=== PATIENT | female | born 1970 | race Caucasian/White ===

== ENCOUNTER 2018-06-08 11:41 | Emergency (ER) | payer OTHER ==
[~2018-06-08] VITALS: Ht 162.6 cm; Wt 133.4 kg
[~2018-06-08 11:41] MED LIST: FLUO-387 PO; OMEP40EC1 PO; OXYC30TA2 PO; XERELTO PO; ZOLP10TA1 PO
[2018-06-08 11:48] VITALS: BP 120/63
--- NOTE | 2018-06-08 12:29 | NUR ---
C/O L GREAT TOE PAIN X1 MONTH, CURRENTLY TAKING AUGMENTIN 875MG, DAY 2. GREAT L TOE IS RED, SWOLLEN AND TENDER TO THE TOUCH. PT DENIES INJURY/TRAUMA, FEVER, N/V/D. SKIN IS PINK/WARM/DRY; AAOX4 WITH EVEN AND STEADY GAIT;PATIENT STATES PAIN OF 0/10 AT THIS TIME; VSS; PATIENT POSITIONED FOR COMFORT; HOB ELEVATED; BEDRAILS UP X1; BED DOWN. ER MD MADE AWARE OF PT STATUS.
--- NOTE | 2018-06-08 12:29 | NUR ---
patient ambulated to bed #4
[2018-06-08] MEDS ORDERED: CLINDAMYCIN 150 MG CAP PO ONE (13:55)
--- NOTE | 2018-06-08 13:56 | NUR ---
PT RESTING IN BED, NO NEW NEEDS AT THIS TIME.
--- NOTE | 2018-06-08 14:16 | NUR ---
XRAY AT BEDSIDE
[2018-06-08] MEDS: NEOMYCIN/POLYMYXIN/BACITRACIN 0.9 GM/1 PKT TP ONE ×2 (14:44→15:35)
[2018-06-08 15:35] VITALS: BP 119/82
--- NOTE | 2018-06-08 15:35 | NUR ---
Patient discharged with v/s stable. Written and verbal after care instructions given and explained. Patient alert, oriented and verbalized understanding of instructions. Ambulatory with steady gait. All questions addressed prior to discharge. ID band removed. Patient advised to follow up with PMD. Rx of NAPROSYN 500MG AND CLINDAMYCIN 300MG given. Patient educated on indication of medication including possible reaction and side effects. Opportunity to ask questions provided and answered.
== END 2018-06-08 15:35 | disposition home or self-care (01) ==
LOC: MED 11:41
DX: L03.032 Cellulitis of left toe (principal); I10 Essential (primary) hypertension; Z85.528 Personal history of other malignant neoplasm of kidney; Z79.899 Other long term (current) drug therapy; Z88.5 Allergy status to narcotic agent; Z88.1 Allergy status to other antibiotic agents; Z91.040 Latex allergy status
CPT/HCPCS: 73660; 99283; Q0092